=== PATIENT | female | born 1970 | race Caucasian/White ===

== ENCOUNTER → 2017-02-04 | Emergency (ER) | payer MEDICARE ==
[2017-02-04 21:55] LABS: BASOPHILS 0.1 % (0-2); HEMATOCRIT 40.7 % (36.0-48.0); HEMOGLOBIN 13.5 g/dL (12-16); IMMATURE GRANULOCYTES 0.1 % (0-5); LYMPHOCYTES 25.1 % (15-50); MCH 30.6 pg (26.0-34.0); MCHC 33.2 g/dL (31.0-37.0); MCV 92.3 fL (80.0-100.0); MEAN PLATELET VOLUME 9.8 fL (7.4-10.4); MONOCYTES 8.7 % (2-11); PLATELET COUNT 238 10x3/uL (130-400); RBC 4.41 10x6/uL (4.00-5.40); RDW 13.5 % (11.5-14.5); WBC 7.1 10x3/uL (4.8-10.8)
[2017-02-04 22:16] LABS: ALBUMIN 3.9 g/dL (3.4-5.0); ALKALINE PHOSPHATASE 58 U/L (46-116); ALT (SGPT) 21 U/L (10-68); BILIRUBIN - TOTAL 0.25 mg/dL (0.2-1.3); CALC OSMOLALITY 276 mosm/kg (275-300); CALCIUM 8.9 mg/dL (8.5-10.1); CARBON DIOXIDE 25.7 mmol/L (21.0-32.0); CHLORIDE - SERUM 104 mmol/L (98-107); CREATININE - SERUM 0.7 mg/dL (0.6-1.3); GLUCOSE 105 mg/dL (74-106); POTASSIUM - SERUM 3.8 mmol/L (3.5-5.1); PROTEIN - SERUM 7.3 g/dL (6.4-8.2); SODIUM 137 mmol/L (136-145); UREA NITROGEN 20 mg/dL (7-18); eGFR NON AFRICAN AMERICAN > 90 mL/min (90-120)
[2017-02-04 22:32] LABS: APPEARANCE CLEAR (CLEAR); BILIRUBIN NEGATIVE (NEGATIVE); COLOR YELLOW (YELLOW); GLUCOSE NEGATIVE (NEGATIVE); KETONE SMALL mg/dL (NEGATIVE); LEUKOCYTE ESTERASE NEGATIVE (NEGATIVE); NITRITE NEGATIVE (NEGATIVE); PROTEIN NEGATIVE (NEGATIVE); SPECIFIC GRAVITY 1.015 (1.005-1.020); UROBILINOGEN NORMAL (NORMAL)
[2017-02-04 22:33] LABS: HCG URINE NEGATIVE (NEGATIVE)
[2017-02-04 23:00] LABS: UDS - AMPHET NEGATIVE QUAL (NEGATIVE); UDS - BARB NEGATIVE QUAL (NEGATIVE); UDS - BENZO NEGATIVE QUAL (NEGATIVE); UDS - COCAINE NEGATIVE QUAL (NEGATIVE); UDS - METH NEGATIVE QUAL (NEGATIVE); UDS - OPIATE NEGATIVE QUAL (NEGATIVE); UDS - PCP NEGATIVE QUAL (NEGATIVE); UDS - THC NEGATIVE QUAL (NEGATIVE)
== END ==
LOC: D.ER 20:43
PROVIDERS: Emergency Medicine
DX: Z86.59 Personal history of other mental and behavioral disorders (principal); F22 Delusional disorders; F41.9 Anxiety disorder, unspecified

== ENCOUNTER 2017-03-14 11:29 | Emergency (ER) | payer MEDICARE ==
[2017-03-14 12:24] LABS: BASOPHILS 0.3 % (0-2); EOSINOPHILS 3.9 % (0-7); HEMATOCRIT 41.4 % (36.0-48.0); HEMOGLOBIN 13.9 g/dL (12-16); IMMATURE GRANULOCYTES 0.3 % (0-5); LYMPHOCYTES 22.8 % (15-50); MCH 30.7 pg (26.0-34.0); MCHC 33.6 g/dL (31.0-37.0); MCV 91.4 fL (80.0-100.0); MEAN PLATELET VOLUME 10.4 fL (7.4-10.4); MONOCYTES 5.2 % (2-11); NEUTROPHILS 67.5 % (40-80); PLATELET COUNT 238 10x3/uL (130-400); RBC 4.53 10x6/uL (4.00-5.40); RDW 13.7 % (11.5-14.5); WBC 7.7 10x3/uL (4.8-10.8)
[2017-03-14 12:28] LABS: APPEARANCE HAZY (CLEAR); BILIRUBIN NEGATIVE (NEGATIVE); COLOR YELLOW (YELLOW); GLUCOSE NEGATIVE (NEGATIVE); KETONE SMALL mg/dL (NEGATIVE); LEUKOCYTE ESTERASE NEGATIVE (NEGATIVE); NITRITE NEGATIVE (NEGATIVE); PROTEIN TRACE mg/dL (NEGATIVE); SPECIFIC GRAVITY 1.025 (1.005-1.020); UROBILINOGEN NORMAL (NORMAL)
[2017-03-14 12:30] LABS: UDS - AMPHET NEGATIVE QUAL (NEGATIVE); UDS - BARB NEGATIVE QUAL (NEGATIVE); UDS - BENZO NEGATIVE QUAL (NEGATIVE); UDS - COCAINE NEGATIVE QUAL (NEGATIVE); UDS - METH NEGATIVE QUAL (NEGATIVE); UDS - OPIATE NEGATIVE QUAL (NEGATIVE); UDS - PCP NEGATIVE QUAL (NEGATIVE); UDS - THC NEGATIVE QUAL (NEGATIVE)
[2017-03-14 12:31] LABS: BACTERIA MANY /hpf (NONE SEEN); MUCUS <1+ /lpf (NONE SEEN); RED CELLS - URINE RARE /hpf (0-5); WHITE CELLS - URINE 0-5 /hpf (0-5)
[2017-03-14 12:32] LABS: GRANULAR CAST RARE /lpf (NONE SEEN)
[2017-03-14 12:36] LABS: ALBUMIN 3.8 g/dL (3.4-5.0); ALKALINE PHOSPHATASE 65 U/L (46-116); ALT (SGPT) 25 U/L (10-68); BILIRUBIN - TOTAL 0.29 mg/dL (0.2-1.3); CALC OSMOLALITY 278 mosm/kg (275-300); CALCIUM 8.8 mg/dL (8.5-10.1); CARBON DIOXIDE 23.2 mmol/L (21.0-32.0); CHLORIDE - SERUM 104 mmol/L (98-107); CREATININE - SERUM 0.7 mg/dL (0.6-1.3); GLUCOSE 152 mg/dL (74-106); POTASSIUM - SERUM 3.7 mmol/L (3.5-5.1); PROTEIN - SERUM 7.2 g/dL (6.4-8.2); SODIUM 137 mmol/L (136-145); UREA NITROGEN 17 mg/dL (7-18); eGFR NON AFRICAN AMERICAN > 90 mL/min (90-120)
== END 2017-03-14 14:20 | disposition home or self-care (01) ==
LOC: D.ER 11:29
PROVIDERS: Emergency Medicine
DX: Z86.59 Personal history of other mental and behavioral disorders (principal); F17.200 Nicotine dependence, unspecified, uncomplicated

== ENCOUNTER 2017-07-09 22:29 | Emergency (ER) | payer MEDICARE ==
[2017-07-09 23:12] LABS: BASOPHILS 0.3 % (0-2); EOSINOPHILS 3.6 % (0-7); HEMATOCRIT 41.9 % (36.0-48.0); HEMOGLOBIN 14.1 g/dL (12-16); IMMATURE GRANULOCYTES 0.2 % (0-5); LYMPHOCYTES 29.7 % (15-50); MCH 30.8 pg (26.0-34.0); MCHC 33.7 g/dL (31.0-37.0); MCV 91.5 fL (80.0-100.0); MEAN PLATELET VOLUME 10.1 fL (7.4-10.4); MONOCYTES 9.3 % (2-11); NEUTROPHILS 56.9 % (40-80); PLATELET COUNT 253 10x3/uL (130-400); RBC 4.58 10x6/uL (4.00-5.40); RDW 13.1 % (11.5-14.5); WBC 8.6 10x3/uL (4.8-10.8)
[2017-07-09 23:27] LABS: APTT 30.7 SECONDS (22.8-39.4); INR 0.93 (0.85-1.17)
[2017-07-09 23:41] LABS: ALBUMIN 4.2 g/dL (3.4-5.0); ALKALINE PHOSPHATASE 69 U/L (46-116); ALT (SGPT) 17 U/L (10-68); CALC OSMOLALITY 278 mosm/kg (275-300); CALCIUM 9.7 mg/dL (8.5-10.1); CHLORIDE - SERUM 104 mmol/L (98-107); CREATININE - SERUM 0.7 mg/dL (0.6-1.3); GLUCOSE 101 mg/dL (74-106); POTASSIUM - SERUM 4.6 mmol/L (3.5-5.1); PROTEIN - SERUM 7.4 g/dL (6.4-8.2); SODIUM 138 mmol/L (136-145); UREA NITROGEN 21 mg/dL (7-18); eGFR NON AFRICAN AMERICAN > 90 mL/min (90-120)
[2017-07-26 11:49] VITALS: BMI 32.5
== END 2017-07-10 02:31 | disposition home or self-care (01) ==
LOC: D.ER 22:29
PROVIDERS: Emergency Medicine
DX: T18.2XXA Foreign body in stomach, initial encounter (principal); X58.XXXA Exposure to other specified factors, initial encounter; Y93.89 Activity, other specified; Y92.89 Other specified places as the place of occurrence of the external cause

== ENCOUNTER 2017-07-26 11:02 | Day surgery (SDC) | payer MEDICARE ==
[~2017-07-26] VITALS: Ht 165.1 cm; Wt 88.6 kg
--- NOTE | ~2017-07-26 | OP ---
PATIENT NAME: ANATOLY PRECIADO MEDICAL RECORD: [id number] :70 LOCATION:[facility] ADMISSION DATE: SURGEON: ALECIA GRANADOS DO DATE OF OPERATION: 07/26/2017 PROCEDURE: EGD with foreign body removal and biopsies. INDICATIONS FOR PROCEDURE: Foreign body consisting of a ring in the stomach, dysphagia, heartburn, epigastric abdominal pain. SCOPE: Olympus video gastroscope. MEDICATIONS: Propofol 350 mg IV per anesthesia. ESTIMATED BLOOD LOSS: Minimal. COMPLICATIONS: None. FINDINGS: Informed consent was given. The patient was made comfortable with the above medication. After reaching an adequate level of sedation by slow IV push, the patient was placed on her left side. The endoscope was advanced under direct visualization through the mouth to the second portion of the duodenum. The upper, middle, and lower thirds of the esophagus appeared normal. At the GE junction, there was evidence of mild LA class C reflux-induced esophagitis. There were no ulcerations seen. The endoscope was advanced beyond the GE junction into the stomach and retroflexed to view the cardia where a small to medium size sliding type hiatal hernia was present. The fundus of the stomach appeared normal. In the body, the ring that was noted to be present from previous imaging was visualized. It was left in place while the remainder of the examination was performed. The endoscope was advanced down to the antrum and prepyloric region, which appeared normal. Random biopsies were taken to submit for histology and to rule out H pylori. The endoscope was advanced beyond the pylorus into the duodenum where the bulb and second portion of the duodenum appeared normal. The endoscope was then withdrawn back into the stomach where the ring was encountered. A Acosta Net was placed through the working channel of the endoscope and used to enclose the ring. The Net with the ring in place was brought out through the esophagus and mouth and withdrawn from the patient in its entirety. The endoscope was then placed back into the esophagus and the entire tract was looked at to assure there were no injuries while removing the ring. The endoscope was then withdrawn from the patient. The patient tolerated the procedure well and there were no complications. IMPRESSION: 1. Foreign body/ring removed from the stomach. 2. Left Atrial class C reflux induced esophagitis, which is mild in appearance. 3. Small to medium size sliding type hiatal hernia. PLAN AND RECOMMENDATIONS: 1. Discharge home when recovery parameters are met. 2. Follow up biopsy specimen results. 3. Continue current medications. 4. GERD, diet, and reflux precautions. 5. Proton pump inhibitor therapy 40 mg daily times 30 days. 6. Proceed with colonoscopy as scheduled. OPERATIVE REPORT [id number] ANATOLY PRECIADO TRANSINT:[id number] Voice Confirmation ID: [id number] DOCUMENT ID: [id number] ALECIA GRANADOS DO CC: [id number] DICTATION DATE: 07/26/17 1328 CLINICAL ACADEMIC ALLERGIST: 07/26/17 1348 [facility] [address] [place] [address]
[2017-07-26] MEDS ORDERED: BENZTROPINE MESY2 MG PO (11:42)
[2017-07-26] MEDS ORDERED: RISPERDAL2 MG PO (11:42)
[2017-07-26] MEDS ORDERED: MELATONIN5 MG PO (11:43)
[2017-07-26] MEDS ORDERED: COLACE100 MG PO (11:43)
[2017-07-26 11:49] VITALS: BP 109/50; Ht 165.1 cm; Wt 88.6 kg
[2017-07-26 11:58] LABS: HEMATOCRIT 39.6 % (36.0-48.0); MCHC 32.8 g/dL (31.0-37.0); MCV 91.5 fL (80.0-100.0); MEAN PLATELET VOLUME 11.1 fL (7.4-10.4); RBC 4.33 10x6/uL (4.00-5.40); RDW 13.3 % (11.5-14.5); WBC 7.8 10x3/uL (4.8-10.8)
== END 2017-07-26 14:37 | disposition home or self-care (01) ==
LOC: D.OPS 11:02
PROVIDERS: Anesthesiology
DX: T18.2XXA Foreign body in stomach, initial encounter (principal); X58.XXXA Exposure to other specified factors, initial encounter; K21.0 Gastro-esophageal reflux disease with esophagitis; K44.9 Diaphragmatic hernia without obstruction or gangrene; Z01.812 Encounter for preprocedural laboratory examination

== ENCOUNTER 2018-03-01 03:08 | Emergency (ER) | payer MEDICARE, MEDICAID ==
[~2018-03-01] VITALS: Ht 165.1 cm; Wt 84.1 kg
[~2018-03-01 03:08] MED LIST: BENZTROPINE MESY2 MG PO; BUSPAR10 MG PO; COLACE100 MG PO; MELATONIN5 MG PO; RISPERDAL2 MG PO
[2018-03-01] MEDS ORDERED: KLONOPIN1 MG PO (03:16)
[2018-03-01] MEDS ORDERED: TOPAMAX50 MG (03:17)
[2018-03-01 03:23] VITALS: BP 153/100; Ht 165.1 cm; Wt 84.1 kg
[2018-03-01 03:47] LABS: BASOPHILS 0.3 % (0-2); EOSINOPHILS 2.2 % (0-7); HEMATOCRIT 41.4 % (36.0-48.0); HEMOGLOBIN 13.9 g/dL (12-16); IMMATURE GRANULOCYTES 0.2 % (0-5); LYMPHOCYTES 14.7 % (15-50); MCH 30.5 pg (26.0-34.0); MCHC 33.6 g/dL (31.0-37.0); MEAN PLATELET VOLUME 10.2 fL (7.4-10.4); MONOCYTES 9.6 % (2-11); PLATELET COUNT 271 10x3/uL (130-400); RBC 4.55 10x6/uL (4.00-5.40); RDW 13.9 % (11.5-14.5)
[2018-03-01 04:00] LABS: HCG SERUM NEGATIVE (NEGATIVE)
[2018-03-01 04:05] LABS: ALBUMIN 3.8 g/dL (3.4-5.0); ALKALINE PHOSPHATASE 61 U/L (46-116); ALT (SGPT) 37 U/L (10-68); CALC OSMOLALITY 279 mosm/kg (275-300); CALCIUM 8.6 mg/dL (8.5-10.1); CARBON DIOXIDE 26.7 mmol/L (21.0-32.0); CHLORIDE - SERUM 104 mmol/L (98-107); CREATININE - SERUM 0.6 mg/dL (0.6-1.3); GLUCOSE 107 mg/dL (74-106); POTASSIUM - SERUM 3.7 mmol/L (3.5-5.1); PROTEIN - SERUM 7.3 g/dL (6.4-8.2); SODIUM 141 mmol/L (136-145); UREA NITROGEN 11 mg/dL (7-18); eGFR NON AFRICAN AMERICAN > 90 mL/min (90-120)
[2018-03-01 04:49] LABS: APPEARANCE CLEAR (CLEAR); BILIRUBIN NEGATIVE (NEGATIVE); COLOR STRAW (YELLOW); GLUCOSE NEGATIVE (NEGATIVE); KETONE MODERATE mg/dL (NEGATIVE); NITRITE NEGATIVE (NEGATIVE); PROTEIN NEGATIVE (NEGATIVE); SPECIFIC GRAVITY 1.005 (1.005-1.020); UROBILINOGEN NORMAL (NORMAL)
[2018-03-01 04:56] LABS: UDS - AMPHET NEGATIVE QUAL (NEGATIVE); UDS - BARB NEGATIVE QUAL (NEGATIVE); UDS - BENZO NEGATIVE QUAL (NEGATIVE); UDS - COCAINE NEGATIVE QUAL (NEGATIVE); UDS - OPIATE NEGATIVE QUAL (NEGATIVE); UDS - PCP NEGATIVE QUAL (NEGATIVE); UDS - THC NEGATIVE QUAL (NEGATIVE)
== END 2018-03-01 04:48 | disposition home or self-care (01) ==
LOC: D.ER 03:08
PROVIDERS: Family Medicine
DX: F29 Unspecified psychosis not due to a substance or known physiological condition (principal); F22 Delusional disorders; F17.200 Nicotine dependence, unspecified, uncomplicated

== ENCOUNTER 2018-03-01 18:17 | Emergency (ER) | payer MEDICARE, MEDICAID ==
[~2018-03-01 18:17] MED LIST changes: +KLONOPIN1 MG PO; +TOPAMAX50 MG
[2018-03-01 18:23] VITALS: Ht 165.1 cm
[2018-03-02 09:29] VITALS: BP 128/072
== END 2018-03-02 09:33 ==
LOC: D.ER 18:17
DX: F23 Brief psychotic disorder (principal)

== ENCOUNTER 2018-09-02 11:02 | Inpatient (IN) | payer MEDICARE, MEDICAID ==
[~2018-09-02] VITALS: Ht 165.1 cm; Wt 95.5 kg
[2018-09-09 09:50] LABS: BASOPHILS 0.2 % (0-2); HEMATOCRIT 40.5 % (36.0-48.0); HEMOGLOBIN 13.4 g/dL (12-16); IMMATURE GRANULOCYTES 0.3 % (0-5); MCH 30.4 pg (26.0-34.0); MCHC 33.1 g/dL (31.0-37.0); MCV 91.8 fL (80.0-100.0); MEAN PLATELET VOLUME 9.9 fL (7.4-10.4); MONOCYTES 7.7 % (2-11); NEUTROPHILS 68.8 % (40-80); PLATELET COUNT 255 10x3/uL (130-400); RBC 4.41 10x6/uL (4.00-5.40); RDW 13.7 % (11.5-14.5); WBC 8.7 10x3/uL (4.8-10.8)
[2018-09-09 09:58] LABS: CALC OSMOLALITY 278 mosm/kg (275-300); CHLORIDE - SERUM 104 mmol/L (98-107); CREATININE - SERUM 0.7 mg/dL (0.6-1.3); GLUCOSE 109 mg/dL (74-106); POTASSIUM - SERUM 4.4 mmol/L (3.5-5.1); SODIUM 139 mmol/L (136-145); UREA NITROGEN 12 mg/dL (7-18); eGFR NON AFRICAN AMERICAN > 90 mL/min (90-120)
[2018-09-12] VITALS (11 sets, daily range): BP systolic 116–146; BP diastolic 58–72; Ht 165.1 cm; Wt 95.5 kg
[2018-09-12] MEDS ORDERED: COLACE100 MG PO (06:03)
[2018-09-12] MEDS ORDERED: [UNRECOGNIZED DRUG - OTHER] (06:05)
[2018-09-12 06:45] LABS: HCG URINE NEGATIVE (NEGATIVE)
[2018-09-13 07:18] LABS: CALC OSMOLALITY 278 mosm/kg (275-300); CALCIUM 8.1 mg/dL (8.5-10.1); CARBON DIOXIDE 26.8 mmol/L (21.0-32.0); CHLORIDE - SERUM 106 mmol/L (98-107); CREATININE - SERUM 0.7 mg/dL (0.6-1.3); GLUCOSE 113 mg/dL (74-106); POTASSIUM - SERUM 3.7 mmol/L (3.5-5.1); SODIUM 140 mmol/L (136-145); UREA NITROGEN 10 mg/dL (7-18); eGFR NON AFRICAN AMERICAN > 90 mL/min (90-120)
[2018-09-13 07:27] LABS: BASOPHILS 0.1 % (0-2); EOSINOPHILS 0.9 % (0-7); HEMATOCRIT 35.4 % (36.0-48.0); HEMOGLOBIN 11.4 g/dL (12-16); IMMATURE GRANULOCYTES 0.1 % (0-5); MCH 29.8 pg (26.0-34.0); MCHC 32.2 g/dL (31.0-37.0); MCV 92.7 fL (80.0-100.0); MEAN PLATELET VOLUME 10.2 fL (7.4-10.4); MONOCYTES 8.1 % (2-11); NEUTROPHILS 76.8 % (40-80); PLATELET COUNT 229 10x3/uL (130-400); RBC 3.82 10x6/uL (4.00-5.40); RDW 13.8 % (11.5-14.5); WBC 8.1 10x3/uL (4.8-10.8)
[2018-09-13 07:30] VITALS: BP 134/64
--- NOTE | 2018-09-13 13:55 | OP ---
PATIENT NAME: ANATOLY PRECIADO MEDICAL RECORD: [id number] :70 LOCATION:[facility].1273 ADMISSION DATE:09/12/18 SURGEON: MAURICIO OSWALD MD DATE OF OPERATION: 09/12/2018 PREOPERATIVE DIAGNOSES: 1. Dysfunctional uterine bleeding. 2. Symptomatic fibroids. POSTOPERATIVE DIAGNOSES: 1. Dysfunctional uterine bleeding. 2. Symptomatic fibroids. PROCEDURE PERFORMED: 1. Diagnostic laparoscopy. 2. Total abdominal hysterectomy with bilateral salpingo-oophorectomy. SURGEON: Mauricio Oswald MD PAY PER CLICK STRATEGIST: Thomas Rosario MD REGIONAL SALES CONSULTANT: Joo Kim ANESTHETIC: General. FINDINGS: Uterus is enlarged with an irregularity of the contour consistent with fibroid uterus. Large fibroids occupied the right and left cornual region making visualization and access to the uterine blood supply limited. At the time of laparotomy, ovaries and tubes were unremarkable and what was visualized of the abdominal anatomy. SPECIMENS REMOVED: Uterus with cervix, tubes, and bilateral ovaries. SPECIMEN DISPOSITION: All specimens to Pathology. ESTIMATED BLOOD LOSS: Less than or equal to 150 cc. FLUIDS: 1500 cc of lactated Ringer's. URINE OUTPUT: Less than 50 cc, clear urine. COMPLICATIONS: None. DRAINS: Garrett to gravity. INDICATIONS: The patient is a 47-year-old female with heavy irregular periods. The patient has had an ablation in the past without relief of symptoms. The patient requests definitive therapy. The patient is consented for bilateral salpingo-oophorectomy and hormone replacement therapy has been discussed with the limitations of results of the [facility]. DESCRIPTION OF PROCEDURE: After informed consent was given, the patient was taken to the operating room where anesthetic was obtained. The patient was prepped and draped. An incision was made at the infraumbilical incision site. Trocars inserted. Pneumoperitoneum was developed and the patient is in OPERATIVE REPORT [id number] ANATOLY PRECIADO Trendelenburg position. It is obvious upon visualization of the pelvis, the uterus takes up the bowl of the pelvis limiting visualization of uterine vasculature. At this point, the prospects for a total laparoscopic hysterectomy is unlikely and the procedure abandoned for an abdominal approach. The trocars were removed and the patient positioned for laparotomy. The patient receives a low transverse abdominal incision carried down to the underlying layer of the fascia, which was opened in the midline and extended laterally. The rectus bellies were dissected free and in the midline. The peritoneum was entered sharply and the rectus bellies further . Using a moistened laparotomy sponge, the bowel was packed free of the pelvis and held back with a malleable retractor. The cornual regions of the uterus were clamped with Elizabeth clamps and the uterus was elevated. Using a Ale clamp, the right uterosacral ligament was elevated and stick tied. Using the Bovie cautery, this ligament was incised and the anterior leaf of the broad ligament was dissected down to the level of the bladder flap. This was conducted with Bovie cautery. A window was now developed in the posterior leaf of the broad ligament underneath the ovary. Two clamps were passed across the infundibulopelvic ligament and this pedicle was mobilized with scissors. A free tie and then qbcn-[id number] stitch was used to obtain hemostasis here. Dissection continues of the connective tissue around the right vascular bundle. Once the bundles had been skeletonized, two clamps were placed on this at the level of the internal os. Attention was now directed to the left side. The left round ligament was elevated in similar fashion and incised. Dissection was carried down and the full bladder flap was developed. A window was developed in the posterior leaf of the broad ligament. The infundibulopelvic ligament on the left side was isolated. Two clamps were placed here and the pedicle was mobilized sharply and then a free tie and a uran-yjs-dqe stitch applied for hemostasis. Dissection continued to the vascular bundle of the left side, is skeletonized and 2 clamps placed. The pedicle was developed sharply and Elizabeth stitch applied for hemostasis. The right side was secured in similar fashion with mobilization of that pedicle with scissors and then a Elizabeth stitch applied for hemostasis. Uterus was now removed with the scalpel. The remaining portion of the cervix and its attachment to the cardinal ligaments were serially clamped, cut and tied to the level of the uterosacral ligament was reached and then 2 Elizabeth clamps were placed across the top of the vagina. The cervix was removed with Cande scissors and the cuff closed with interrupted efsuag-hg-[id number] stitches. Once the cuff close was completed, irrigation was performed of the pelvis and irrigant removed. Small bleeding spots on the peritoneum were identified and cauterized. FloSeal was placed over the cuff and at the bladder flap. The sponges were removed from the abdomen and initial sponge count was correct. The infundibulopelvic ligaments were inspected prior to the close and found to be adequately hemostatic. Fascia was now closed in a running fashion with a looped PDS. Subcutaneous tissue was irrigated. Bleeding vessels cauterized and the skin reapproximated with hayden. Dermabond was used to reapproximate the laparoscopic incision site at the infraumbilical location and sterile pressure dressings applied over the Pfannenstiel incision. At the close of this procedure, the sponge, lap, and needle count was correct times 2. The patient was taken to the recovery room in stable condition. TRANSINT:[id number] Voice Confirmation ID: [id number] DOCUMENT ID: [id number] OPERATIVE REPORT [id number] ANATOLY PRECIADO,MAURICIO Bowen MD at 1355 CC: [id number] DICTATION DATE: 09/12/18920 METAL STORAGE WORKER: 09/12/18 0952 ADM IN [facility] [address] [place] [address]
== END 2018-09-13 14:30 | disposition home or self-care (01) | DRG 743 ==
LOC: D.SDCHOLD 09-12 05:00 → D.LD 09-12 05:00 → D.SDCHOLD 09-12 07:30 → D.LD 09-12 10:04
PROVIDERS: ADMIT Obstetrics & Gynecology; ATTEND Obstetrics & Gynecology
PROC: 0UT70ZZ Resection of Bilateral Fallopian Tubes, Open Approach (ICD-10-PCS; 2018-09-12)
PROC: 0UT90ZZ Resection of Uterus, Open Approach (ICD-10-PCS; principal; 2018-09-12 07:30)
PROC: 0UT20ZZ Resection of Bilateral Ovaries, Open Approach (ICD-10-PCS; 2018-09-12 07:30)
DX: N93.8 Other specified abnormal uterine and vaginal bleeding (principal); D25.9 Leiomyoma of uterus, unspecified

== ENCOUNTER 2018-09-29 22:22 | Emergency (ER) | payer MEDICARE, MEDICAID ==
[~2018-09-29] VITALS: Ht 165.1 cm; Wt 95.5 kg
[~2018-09-29 22:22] MED LIST changes: +[UNRECOGNIZED DRUG - OTHER]
[2018-09-29 22:40] VITALS: Ht 165.1 cm; Wt 95.5 kg
[2018-09-29 23:06] LABS: BASOPHILS 0.3 % (0-2); EOSINOPHILS 3.2 % (0-7); HEMATOCRIT 36.7 % (36.0-48.0); HEMOGLOBIN 12.1 g/dL (12-16); IMMATURE GRANULOCYTES 0.5 % (0-5); LYMPHOCYTES 19.1 % (15-50); MCH 30.2 pg (26.0-34.0); MCV 91.5 fL (80.0-100.0); MEAN PLATELET VOLUME 9.9 fL (7.4-10.4); MONOCYTES 6.8 % (2-11); NEUTROPHILS 70.1 % (40-80); RBC 4.01 10x6/uL (4.00-5.40); RDW 13.1 % (11.5-14.5); WBC 10.5 10x3/uL (4.8-10.8)
[2018-09-29 23:07] LABS: PLATELET COUNT 298 10x3/uL (130-400)
[2018-09-29 23:17] LABS: APTT 29.5 SECONDS (22.8-39.4); INR 0.98 (0.85-1.17); PROTIME 12.5 SECONDS (11.6-15.0)
[2018-09-29 23:29] LABS: ALBUMIN 3.3 g/dL (3.4-5.0); ALKALINE PHOSPHATASE 71 U/L (46-116); ALT (SGPT) 17 U/L (10-68); CALC OSMOLALITY 282 mosm/kg (275-300); CALCIUM 8.6 mg/dL (8.5-10.1); CARBON DIOXIDE 27.3 mmol/L (21.0-32.0); CHLORIDE - SERUM 107 mmol/L (98-107); CREATININE - SERUM 0.7 mg/dL (0.6-1.3); GLUCOSE 129 mg/dL (74-106); PROTEIN - SERUM 6.8 g/dL (6.4-8.2); SODIUM 140 mmol/L (136-145); UREA NITROGEN 17 mg/dL (7-18); eGFR NON AFRICAN AMERICAN > 90 mL/min (90-120)
[2018-09-29 23:40] LABS: CKMB 1.2 U/L (0.0-3.6); CREATINE KINASE 67 UL (21-215); MAGNESIUM - SERUM 1.8 mg/dL (1.8-2.4); TROPONIN-I < 0.017 ng/mL (0.000-0.060)
[2018-09-30] MEDS ORDERED: TORADOL10 MG PO (02:46)
[2018-09-30 02:54] VITALS: BP 116/54
== END 2018-09-30 02:55 | disposition home or self-care (01) ==
LOC: D.ER 22:22
PROVIDERS: Family Medicine
DX: R07.89 Other chest pain (principal)

== ENCOUNTER 2019-10-30 16:45 | Emergency (ER) | payer MEDICARE, MEDICAID ==
[~2019-10-30] VITALS: Ht 165.1 cm; Wt 98.2 kg
[~2019-10-30 16:45] MED LIST changes: +TORADOL10 MG PO
[2019-10-30 17:00] VITALS: Ht 165.1 cm; Wt 98.2 kg
[2019-10-30] MEDS ORDERED: INVEGA (17:02)
[2019-10-30 17:34] LABS: BILIRUBIN NEGATIVE (NEGATIVE); GLUCOSE NEGATIVE (NEGATIVE); KETONE MODERATE mg/dL (NEGATIVE); NITRITE NEGATIVE (NEGATIVE); SPECIFIC GRAVITY 1.015 (1.005-1.020); UROBILINOGEN NORMAL (NORMAL)
[2019-10-30 17:35] LABS: HCG URINE NEGATIVE (NEGATIVE)
[2019-10-30 17:38] LABS: UDS - AMPHET NEGATIVE QUAL (NEGATIVE); UDS - BARB NEGATIVE QUAL (NEGATIVE); UDS - BENZO NEGATIVE QUAL (NEGATIVE); UDS - COCAINE NEGATIVE QUAL (NEGATIVE); UDS - OPIATE NEGATIVE QUAL (NEGATIVE); UDS - PCP NEGATIVE QUAL (NEGATIVE); UDS - THC NEGATIVE QUAL (NEGATIVE)
[2019-10-30 17:54] LABS: HEMATOCRIT 43.4 % (36.0-48.0); HEMOGLOBIN 14.2 g/dL (12-16); LYMPHOCYTES 20.4 % (15-50); MCH 29.3 pg (26.0-34.0); MCHC 32.7 g/dL (31.0-37.0); MCV 89.7 fL (80.0-100.0); NEUTROPHILS 70.3 % (40-80); PLATELET COUNT 306 10x3/uL (130-400); RBC 4.84 10x6/uL (4.00-5.40); RDW 13.6 % (11.5-14.5); WBC 10.4 10x3/uL (4.8-10.8)
[2019-10-30 18:20] LABS: CALC OSMOLALITY 277 mosm/kg (275-300); CALCIUM 9.3 mg/dL (8.5-10.1); CARBON DIOXIDE 25.6 mmol/L (21.0-32.0); CHLORIDE - SERUM 104 mmol/L (98-107); CREATININE - SERUM 0.7 mg/dL (0.6-1.3); GLUCOSE 96 mg/dL (74-106); POTASSIUM - SERUM 3.8 mmol/L (3.5-5.1); SODIUM 140 mmol/L (136-145); UREA NITROGEN 9 mg/dL (7-18); eGFR NON AFRICAN AMERICAN > 90 mL/min (90-120)
[2019-10-30 18:25] LABS: ALBUMIN 4.3 g/dL (3.4-5.0); ALKALINE PHOSPHATASE 75 U/L (30-120); ALT (SGPT) 38 U/L (10-68); PROTEIN - SERUM 7.7 g/dL (6.4-8.2)
[2019-10-30 22:00] VITALS: BP 136/84
== END 2019-10-30 22:00 ==
LOC: D.ER 16:45
PROVIDERS: Family Medicine
DX: F23 Brief psychotic disorder (principal); F20.9 Schizophrenia, unspecified; F31.9 Bipolar disorder, unspecified; R44.1 Visual hallucinations; R44.0 Auditory hallucinations; R41.0 Disorientation, unspecified

== ENCOUNTER 2019-11-21 08:15 | Emergency (ER) | payer MEDICARE, MEDICAID ==
[~2019-11-21] VITALS: Ht 165.1 cm; Wt 95.5 kg
[~2019-11-21 08:15] MED LIST changes: +INVEGA
[2019-11-21 08:17] VITALS: Ht 165.1 cm; Wt 95.5 kg
[2019-11-21 09:59] LABS: BASOPHILS 0.3 % (0-2); EOSINOPHILS 4.4 % (0-7); HEMATOCRIT 43.4 % (36.0-48.0); IMMATURE GRANULOCYTES 0.2 % (0-5); LYMPHOCYTES 25.3 % (15-50); MCH 29.7 pg (26.0-34.0); MCHC 32.3 g/dL (31.0-37.0); MCV 91.9 fL (80.0-100.0); MEAN PLATELET VOLUME 9.9 fL (7.4-10.4); MONOCYTES 7.4 % (2-11); NEUTROPHILS 62.4 % (40-80); PLATELET COUNT 310 10x3/uL (130-400); RBC 4.72 10x6/uL (4.00-5.40); RDW 14.2 % (11.5-14.5); WBC 6.6 10x3/uL (4.8-10.8)
[2019-11-21 10:06] LABS: CALC OSMOLALITY 279 mosm/kg (275-300); CALCIUM 9.4 mg/dL (8.5-10.1); CARBON DIOXIDE 29.3 mmol/L (21.0-32.0); CHLORIDE - SERUM 103 mmol/L (98-107); CREATININE - SERUM 0.8 mg/dL (0.6-1.3); GLUCOSE 98 mg/dL (74-106); POTASSIUM - SERUM 3.7 mmol/L (3.5-5.1); SODIUM 141 mmol/L (136-145); UREA NITROGEN 9 mg/dL (7-18); eGFR NON AFRICAN AMERICAN 81 mL/min (90-120)
[2019-11-21 10:11] LABS: ALBUMIN 4.1 g/dL (3.4-5.0); ALKALINE PHOSPHATASE 65 U/L (30-120); ALT (SGPT) 52 U/L (10-68); BILIRUBIN - TOTAL 0.36 mg/dL (0.2-1.3); MAGNESIUM - SERUM 2.2 mg/dL (1.8-2.4); PROTEIN - SERUM 7.4 g/dL (6.4-8.2)
[2019-11-21 12:13] LABS: BILIRUBIN NEGATIVE (NEGATIVE); GLUCOSE NEGATIVE (NEGATIVE); KETONE SMALL mg/dL (NEGATIVE); NITRITE NEGATIVE (NEGATIVE); SPECIFIC GRAVITY 1.005 (1.005-1.020); UROBILINOGEN NORMAL (NORMAL)
[2019-11-21 12:23] LABS: UDS - AMPHET NEGATIVE QUAL (NEGATIVE); UDS - BARB NEGATIVE QUAL (NEGATIVE); UDS - BENZO NEGATIVE QUAL (NEGATIVE); UDS - COCAINE NEGATIVE QUAL (NEGATIVE); UDS - OPIATE NEGATIVE QUAL (NEGATIVE); UDS - PCP NEGATIVE QUAL (NEGATIVE); UDS - THC NEGATIVE QUAL (NEGATIVE)
[2019-11-21 15:29] VITALS: BP 139/86
== END 2019-11-21 15:31 ==
LOC: D.ER 08:15
PROVIDERS: Family Medicine
DX: F23 Brief psychotic disorder (principal)